=== PATIENT | female | born 1955 | race Caucasian/White ===

== ENCOUNTER → 2019-03-12 | Outpatient (CLI) | payer BC ==
--- NOTE | 2019-03-12 14:54 | Diagnostic Imaging Report ---
INDICATION: Fall two weeks ago and low back pain. TIME OF EXAM: 2:17 p.m. FINDINGS: Three views of the lumbar spine were obtained. Curvature and alignment are normal. Vertebral body heights are well maintained. No acute compression fracture is seen. Multilevel degenerative disc disease is noted with variable disc space narrowing and marginal spurring. There is multilevel facet arthropathy. IMPRESSION: Lumbar spondylosis. No acute bony abnormality is detected. Dictated by: Dictated on workstation # [id number]
--- NOTE | 2019-03-12 15:02 | Diagnostic Imaging Report ---
INDICATION: Fall with right hip pain. TIME OF EXAM: 2:19 p.m. FINDINGS: Two views of the right hip demonstrate normal femoroacetabular alignment. The joint space is well maintained. Femoral head and neck are intact. No fractures are seen. The right-sided rami are intact. IMPRESSION: No acute bony abnormality is detected. Dictated by: Dictated on workstation # [id number]
== END ==
LOC: RAD FS 14:10
PROVIDERS: ATTEND Nurse Practitioner
DX: M47.816 Spondylosis without myelopathy or radiculopathy, lumbar region (principal); M25.551 Pain in right hip; W19.XXXA Unspecified fall, initial encounter
CPT/HCPCS: 72100; 73502

== ENCOUNTER → 2019-12-05 | Outpatient (CLI) | payer BC, OTHER ==
--- NOTE | 2019-12-05 16:00 | Diagnostic Imaging Report ---
PROCEDURE: US Renal Bilateral. TECHNIQUE: Multiple real-time grayscale images were obtained over the kidneys in various projections bilaterally. INDICATION: Chronic kidney disease, stage III. Right kidney measures 9.7 x 4.5 x 5.0 cm and the left kidney measures 9.1 x 4.7 x 4.5 cm. The cortical thickness and echogenicity appears normal. No calculi are seen. There is no hydronephrosis. Bladder is unremarkable. Ureteral jets were not visualized. IMPRESSION: Unremarkable renal ultrasound. Dictated by: Dictated on workstation # [id number]
== END ==
LOC: RAD 12:00
PROVIDERS: ATTEND Internal Medicine Nephrology
DX: N18.30 Chronic kidney disease, stage 3 unspecified (principal)
CPT/HCPCS: 76770

== ENCOUNTER 2020-12-03 19:26 | Emergency (ER) | payer BC, OTHER ==
[~2020-12-03] VITALS: Ht 170.1 cm; Wt 90.8 kg
[2020-12-03] MEDS ORDERED: LACTATED RINGERS 1,000 ML IV SCH (20:00)
[2020-12-03] MEDS ORDERED: inSUlin (REGULAR) HUMAN 1 UNIT/0.01 ML (CHARGE PER UNIT) IV SCH (20:00)
[2020-12-03 20:30] LABS: BILIRUBIN,URINE NEGATIVE (NEGATIVE); COLOR,URINE YELLOW; GLUCOSE, URINE (UA) 3+ (NEGATIVE); KETONES,URINE NEGATIVE (NEGATIVE); NITRITE,URINE POSITIVE (NEGATIVE); PROTEIN,URINE NEGATIVE (NEGATIVE)
[2020-12-03 20:40] LABS: BACTERIA,URINE LARGE /HPF; CLARITY,URINE CLOUDY; LEUKOCYTE ESTERASE ,URINE 1+ (NEGATIVE); RBC,URINE 25-50 /HPF; SQUAMOUS EPITHELIAL CELL,UR 0-2 /HPF; WBC,URINE 50-100 /HPF
[2020-12-03 20:43] LABS: BASOPHILS # (AUTO) 0.1 10^3/uL (0.0-0.1); BASOPHILS % (AUTO) 1 % (0-10); EOSINOPHILS # (AUTO) 0.1 10^3/uL (0.0-0.3); EOSINOPHILS % (AUTO) 1 % (0-10); HEMATOCRIT 38 % (35-52); HEMOGLOBIN 13.1 g/dL (11.5-16.0); LYMPHOCYTES # (AUTO) 1.7 X 10^3 (1.0-4.0); LYMPHOCYTES % (AUTO) 13 % (12-44); MEAN CORPUSCULAR HEMOGLOBIN 29 pg (25-34); MEAN CORPUSCULAR HGB CONC 35 g/dL (32-36); MEAN CORPUSCULAR VOLUME 84 fL (80-99); MONOCYTES # (AUTO) 1.1 X 10^3 (0.0-1.0); MONOCYTES % (AUTO) 8 % (0-12); NEUTROPHILS # (AUTO) 10.1 X 10^3 (1.8-7.8); NEUTROPHILS % (AUTO) 77 % (42-75); PLATELET COUNT 191 10^3/uL (130-400); WHITE BLOOD COUNT 13.1 10^3/uL (4.3-11.0)
--- NOTE | 2020-12-03 20:57 | ED General ---
General Chief Complaint: General Problems/Pain Stated Complaint: CHILLS,NAUSEA Nursing Triage Note: PT IN PER POV WITH C/O CHILLS AND NAUSEA SINCE MONDAY. REPORTS VOMITED ONCE ON MONDAY. Source of Information: Patient Exam Limitations: No Limitations History of Present Illness Date Seen by Provider: Dec 03, 2020 Time Seen by Provider: 19:35 Initial Comments 65-year-old female with past medical history of diabetes coming in due to 2 days of chills, body aches, headache, and a couple episodes of nonbloody nonbilious vomiting. She says she has not taken her insulin or blood sugar for the past couple days when she is feeling sick. Denies any cough, fever that she knows of, diarrhea, rash. Has had some urinary symptoms as well. Is otherwise denying any other acute complaints. Allergies and Home Medications Allergies Coded Allergies: No Known Drug Allergies (Unverified , 12/03/20) Patient Home Medication List Home Medication List Reviewed: Yes Cefdinir (Cefdinir) 300 Mg Capsule, 300 MG PO BID Prescribed by: NOEMÍ CLARK on 12/03/202058 Ondansetron (Ondansetron Odt) 4 Mg Tab.rapdis, 4 MG PO Q6H PRN for NAUSEA/VOMITING Prescribed by: NOEMÍ CLARK on 12/03/202058 Review of Systems Review of Systems Constitutional: chills; No fever; malaise EENTM: No nose congestion, No throat pain Respiratory: No cough, No short of breath Gastrointestinal: No abdominal pain, No constipation, No diarrhea; nausea, vomiting Genitourinary: dysuria Musculoskeletal: no symptoms reported Skin: no symptoms reported Psychiatric/Neurological: No Symptoms Reported Hematologic/Lymphatic: No Symptoms Reported Immunological/Allergic: no symptoms reported All Other Systems Reviewed Negative Unless Noted: Yes Past Fhhians-Atpkcw-Sekojc Hx Patient Social History Tobacco Use?: No Use of E-Cig and/or Vaping dev: No Substance use?: No Alcohol Use?: No Pt feels they are or have been: No Immunizations Up To Date First/Initial COVID19 Vaccinat: may 2020 Second COVID19 Vaccination Lucas: june 2020 COVID19 Vaccine Supervisor Hand Workers: hilda Physical Exam Vital Signs Vital Signs - First Documented 12/03/20 19:35 Temp 37.6 Pulse 88 Resp 14 B/P (MAP) 152/71 (98) Pulse Ox 98 O2 Delivery Room Air Capillary Refill : Less Than 3 Seconds Height, Weight, BMI Height: '" Weight: lbs. oz. kg; 31.00 BMI Method: General Appearance: No Apparent Distress, WD/WN HEENT: PERRL/EOMI, Normal ENT Inspection, Pharynx Normal Neck: Full Range of Motion, Normal Inspection, Non Tender, Supple Respiratory: Chest Non Tender, Lungs Clear, Normal Breath Sounds, No Accessory Muscle Use, No Respiratory Distress Cardiovascular: Regular Rate, Rhythm, No Edema, Normal Peripheral Pulses Gastrointestinal: Normal Bowel Sounds, Non Tender, Soft; No Distended, No Guarding Back: Normal Inspection, No Vertebral Tenderness Extremity: Normal Capillary Refill, Normal Inspection, Normal Range of Motion, Non Tender, No Calf Tenderness, No Pedal Edema Neurologic/Psychiatric: Alert, Normal Mood/Affect Skin: Normal Color, Warm/Dry Lymphatic: No Adenopathy Progress/Results/Core Measures Suspected Sepsis SIRS Temperature: Pulse: 88 Respiratory Rate: 14 Laboratory Tests 12/03/20 20:15: White Blood Count 13.1H Blood Pressure 152 /71 Mean: 98 Laboratory Tests 12/03/20 20:15: Creatinine 1.64H, Platelet Count 191 Results/Orders Lab Results Laboratory Tests Test 12/03/20 19:48 12/03/20 20:08 12/03/20 20:15 Range/Units Glucometer 271 H 70-110 MG/DL Urine Color YELLOW Urine Clarity CLOUDY H Urine pH 6.0 5-9 Urine Specific Webster <=1.005 1.016-1.022 Urine Protein NEGATIVE NEGATIVE Urine Glucose (UA) 3+ H NEGATIVE Urine Ketones NEGATIVE NEGATIVE Urine Nitrite POSITIVE H NEGATIVE Urine Bilirubin NEGATIVE NEGATIVE Urine Urobilinogen 0.2 < = 1.0 MG/DL Urine Leukocyte Esterase 1+ H NEGATIVE Urine RBC (Auto) 2+ H NEGATIVE Urine RBC 25-50 H /HPF Urine WBC 50-100 H /HPF Urine Squamous Epithelial Cells 0-2 /HPF Urine Crystals NONE /LPF Urine Bacteria LARGE H /HPF Urine Casts NONE /LPF Urine Mucus NEGATIVE /LPF Urine Culture Indicated YES White Blood Count 13.1 H 4.3-11.0 10^3/uL Red Blood Count 4.50 3.80-5.11 10^6/uL Hemoglobin 13.1 11.5-16.0 g/dL Hematocrit 38 35-52 % Mean Corpuscular Volume 84 80-99 fL Mean Corpuscular Hemoglobin 29 25-34 pg Mean Corpuscular Hemoglobin Concent 35 32-36 g/dL Red Cell Distribution Width 14.0 10.0-14.5 % Platelet Count 191 130-400 10^3/uL Mean Platelet Volume 10.0 9.0-12.2 fL Immature Granulocyte % (Auto) 1 % Neutrophils (%) (Auto) 77 H 42-75 % Lymphocytes (%) (Auto) 13 12-44 % Monocytes (%) (Auto) 8 0-12 % Eosinophils (%) (Auto) 1 0-10 % Basophils (%) (Auto) 1 0-10 % Neutrophils # (Auto) 10.1 H 1.8-7.8 X 10^3 Lymphocytes # (Auto) 1.7 1.0-4.0 X 10^3 Monocytes # (Auto) 1.1 H 0.0-1.0 X 10^3 Eosinophils # (Auto) 0.1 0.0-0.3 10^3/uL Basophils # (Auto) 0.1 0.0-0.1 10^3/uL Immature Granulocyte # (Auto) 0.1 0.0-0.1 10^3/uL Sodium Level 133 L 135-145 MMOL/L Potassium Level 3.8 3.6-5.0 MMOL/L Chloride Level 91 L 98-107 MMOL/L Carbon Dioxide Level 28 21-32 MMOL/L Anion Gap 14 5-14 MMOL/L Blood Urea Nitrogen 37 H 7-18 MG/DL Creatinine 1.64 H 0.60-1.30 MG/DL Estimat Glomerular Filtration Rate 32 BUN/Creatinine Ratio 23 Glucose Level 283 H 70-105 MG/DL Calcium Level 9.5 8.5-10.1 MG/DL My Orders Orders - NOEMÍ CLARK MD Accucheck Stat ONCE (12/03/20 19:47) Basic Metabolic Panel (12/03/20 19:58) Cbc With Automated Diff (12/03/20 19:58) Ua Culture If Indicated (12/03/20 19:58) Coronavirus Sars-Cov-2 So 2018 (12/03/20 19:58) Lactated Ringers (Lr 1000 Ml Iv Solution (12/03/20 20:00) Insulin (Regular) Human (Novolin R (Per (12/03/20 20:00) Iv/Invasive Line Insertion .IV start (12/03/20 20:32) Urine Culture (12/03/20 20:08) Ceftriaxone (Rocephin) (12/03/20 21:00) Ondansetron Injection (Zofran Injectio (12/03/20 21:00) Vital Signs/I&O 12/03/20 19:35 Temp 37.6 Pulse 88 Resp 14 B/P (MAP) 152/71 (98) Pulse Ox 98 O2 Delivery Room Air Capillary Refill : Less Than 3 Seconds Blood Pressure Mean: 98 Point of Care Testing Finger Stick Blood Glucose: 278 Blood Glucose Action Taken: dr clark notified Progress Note : Progress Note 65-year-old female with above history coming in due to general body aches, chills, dysuria. ABCs were intact and vitals were stable on presentation. Physical exam reassuring with no focal abnormalities. Labs significant for elevated glucose, and urinalysis consistent with infection. Given her systemic symptoms if it is more along with pyelonephritis. Given first dose of IV ceftriaxone here. Will send home with oral cefdinir. Covid test sent given the chills and vomiting as well and will come back within the next day or so. She was given a bolus of IV fluids and insulin as well given her elevated glucose and her not taking them recently. She did states she took her long-acting insulin this morning though. Other labs were significant for a slightly elevated creatinine at 1.6 which given her longstanding poorly controlled diabetes is likely CKD versus a mild MICHELLE. Her IV fluids should help with this as well as she is tolerating p.o. fluids well. I believe she is stable for discharge. She was sent home in stable condition with strict return precautions Departure Impression Primary Impression: Pyelonephritis Additional Impression: Person under investigation for COVID-19 Disposition: HOME, SELF-CARE Condition: Stable Departure-Patient Inst. Decision time for Depature: 20:55 Referrals: ANGELA FRANCO (PCP/Family) Primary Care Physician Patient Instructions: COVID-19 Overview, Kidney Infection (DC) Add. Discharge Instructions: It appears like you have a kidney infection. We will send in antibiotic and nausea meds to your pharmacy. Your Covid test should be back within the next 24 hours. Drink plenty of fluids and be sure to check your glucose and take insulin. Elevated glucose will make your kidney infection worse. All discharge instructions reviewed with patient and/or family. Voiced understanding. Scripts Ondansetron (Ondansetron Odt) 4 Mg Tab.rapdis 4 MG PO Q6H PRN for NAUSEA/VOMITING for 5 Days, #20 TAB 0 Refills Prov: NOEMÍ CLARK MD 12/03/20 Cefdinir (Cefdinir) 300 Mg Capsule 300 MG PO BID for 7 Days, #14 CAP 0 Refills Prov: NOEMÍ CLARK MD 12/03/20 NOEMÍ CLARK MD Dec 03, 2020 20:57
[2020-12-03 20:58] LABS: POTASSIUM 3.8 MMOL/L (3.6-5.0)
[2020-12-03 20:59] LABS: CALCIUM 9.5 MG/DL (8.5-10.1); CREATININE SERUM 1.64 MG/DL (0.60-1.30)
[2020-12-03] MEDS ORDERED: CEFD300C3 PO (20:59)
[2020-12-03] MEDS ORDERED: ONDA4TAB11 PO (20:59)
[2020-12-03] MEDS ORDERED: ONDANSETRON 4 MG/2 ML (SDV) Z0FRAN IVP ONE (21:00)
[2020-12-03] MEDS ORDERED: cefTRIAXone 1,000 MG in WATER (STERILE) FOR INJECTION 10 ML IV ONE (21:00)
[2020-12-03 21:15] VITALS: BP 143/65
== END 2020-12-03 21:15 | disposition home or self-care (01) ==
LOC: EDUNIT# 19:26 → ER FS 19:28
DX: N12 Tubulo-interstitial nephritis, not specified as acute or chronic (principal); E11.9 Type 2 diabetes mellitus without complications; T38.3X6A Underdosing of insulin and oral hypoglycemic [antidiabetic] drugs, initial encounter; Z91.14 Patient's other noncompliance with medication regimen; Z20.822 Contact with and (suspected) exposure to COVID-19
CPT/HCPCS: 36415; 80048; 81000; 82947; 85025; 87077; 87088; 87186; 87635; 96374; 96375

== ENCOUNTER 2022-08-22 07:05 | Observation (INO) | payer BC, MEDICARE ==
[~2022-08-22] VITALS: Ht 167 cm; Wt 90.0 kg
[2022-08-22] VITALS (11 sets, daily range): BP systolic 112–131; BP diastolic 56–69
[~2022-08-22 07:05] MED LIST: CEFD300C3 PO; ONDA4TAB11 PO
[2022-08-22] MEDS ORDERED: PANTOPRAZOLE 40 MG (PROTONIX) VIAL IV ONE (07:30)
[2022-08-22 07:35] LABS: BASOPHILS # (AUTO) 0.1 10^3/uL (0.0-0.1); BASOPHILS % (AUTO) 1 % (0-10); EOSINOPHILS # (AUTO) 0.7 10^3/uL (0.0-0.3); EOSINOPHILS % (AUTO) 7 % (0-10); LYMPHOCYTES # (AUTO) 2.6 10^3/uL (1.0-4.0); LYMPHOCYTES % (AUTO) 25 % (12-44); MEAN CORPUSCULAR HEMOGLOBIN 26 pg (25-34); MEAN CORPUSCULAR HGB CONC 30 g/dL (32-36); MEAN CORPUSCULAR VOLUME 86 fL (80-99); MEAN PLATELET VOLUME 10.6 fL (9.0-12.2); MONOCYTES # (AUTO) 0.8 10^3/uL (0.0-1.0); MONOCYTES % (AUTO) 8 % (0-12); NEUTROPHILS # (AUTO) 5.9 10^3/uL (1.8-7.8); NEUTROPHILS % (AUTO) 59 % (42-75); PLATELET COUNT 265 10^3/uL (130-400); WHITE BLOOD COUNT 10.1 10^3/uL (4.3-11.0)
[2022-08-22 07:38] LABS: HEMATOCRIT 18 % (35-52); HEMOGLOBIN 5.6 g/dL (11.5-16.0)
--- NOTE | 2022-08-22 07:41 | Diagnostic Imaging Report ---
INDICATION: Chest pain AP upright portable view of the chest is obtained. COMPARISON: No previous study is available for comparison at this time. FINDINGS: Heart size and pulmonary vasculature are within normal limits, and the lungs are clear, bilaterally. IMPRESSION: Unremarkable chest. Dictated by: Dictated on workstation # [id number]
--- NOTE | 2022-08-22 08:01 | ED General ---
General Chief Complaint: General Problems/Pain Stated Complaint: CHEST PAIN Nursing Triage Note: Patient has presented to ER with with several complaints. She complains of shortness of breath with exertion for the last 2 weeks. She reports that when she is short of breath she has some chest pain. After resting her pain will go away and with rest her shortness of breath will get better. Patient reports that when she has the the chest pain she also has upper abd pain. She states that 2 1/2 week ago she had a colonoscopy and had polyps removed. Since that time she has had the symptoms. Source of Information: Patient Exam Limitations: No Limitations History of Present Illness Date Seen by Provider: Aug 22, 2022 Time Seen by Provider: 07:08 Initial Comments 66-year-old female patient with history of hypertension and type 2 diabetes presented POV with complaining of shortness of breath and chest pain and abdominal pain. Patient stated she had colonoscopy on August 05 with removal of polyp and since then has had 1 episode of black tarry stool a day with gradual onset of episodes of exertional shortness of breath and pressure chest pain during episode of shortness of breath with radiation to her back and abdomen. Patient rated her pain 5/10 and states the pain resolved about 15 minutes with rest. Patient complained of generalized weakness and palpitation and dizziness with activity. Patient denies history of chest pain, nausea and vomiting, GI bleeding, fever and chills, cough and congestion. Patient had a colonoscopy 3 months ago and because of taking aspirin did not have polypectomy. Patient stopped taking aspirin 1 week before her second colonoscopy on August 05 and resume taking aspirin the day after her procedure. Patient did not take baby aspirin today. Allergies and Home Medications Allergies Coded Allergies: No Known Drug Allergies (Unverified , 12/03/20) Patient Home Medication List Home Medication List Reviewed: Yes Cefdinir (Cefdinir) 300 Mg Capsule, 300 MG PO BID Prescribed by: NOEMÍ KAMARA on 12/03/202058 Ondansetron (Ondansetron Odt) 4 Mg Tab.rapdis, 4 MG PO Q6H PRN for NAUSEA/VOMITING Prescribed by: NOEMÍ KAMARA on 12/03/202058 Review of Systems Review of Systems Constitutional: no symptoms reported EENTM: no symptoms reported Respiratory: see HPI Cardiovascular: see HPI Gastrointestinal: see HPI Genitourinary: no symptoms reported Musculoskeletal: no symptoms reported Skin: no symptoms reported Psychiatric/Neurological: No Symptoms Reported Hematologic/Lymphatic: See HPI Immunological/Allergic: no symptoms reported All Other Systems Reviewed Negative Unless Noted: Yes Past Jszvxis-Wmwber-Qqghvx Hx Patient Social History Use of E-Cig and/or Vaping dev: No Substance use?: No Alcohol Use?: No Pt feels they are or have been: Unable to obtain Immunizations Up To Date First/Initial COVID19 Vaccinat: may 2020 Second COVID19 Vaccination Lucas: june 2020 Physical Exam Vital Signs Vital Signs - First Documented 08/22/22 07:30 Temp 35.9 Pulse 19 Resp 19 B/P (MAP) 112/88 (96) Pulse Ox 100 O2 Delivery Room Air Capillary Refill : Height, Weight, BMI Height: '" Weight: lbs. oz. kg; 32.00 BMI Method: General Appearance: No Apparent Distress, WD/WN Eyes: Bilateral Eye Normal Inspection, Bilateral Eye PERRL, Bilateral Eye EOMI HEENT: PERRL/EOMI, Pharynx Normal, Pale Conjunctivae (L), Pale Conjunctivae (R) Neck: Full Range of Motion, Normal Inspection, Non Tender, Supple, Carotid Bruit Respiratory: Chest Non Tender, Lungs Clear, Normal Breath Sounds, No Accessory Muscle Use, No Respiratory Distress Cardiovascular: Regular Rate, Rhythm, No Edema, No Gallop, No JVD, No Murmur, Normal Peripheral Pulses Gastrointestinal: Normal Bowel Sounds, No Organomegaly, No Pulsatile Mass, Non Tender, Soft Rectal: Normal Rectal Tone, Black Stool, Heme Positive Stool Back: Normal Inspection, No CVA Tenderness, No Vertebral Tenderness Extremity: Normal Capillary Refill, Normal Inspection, Normal Range of Motion, Non Tender, No Calf Tenderness, No Pedal Edema Neurologic/Psychiatric: Alert, Oriented x3, No Motor/Sensory Deficits, Normal Mood/Affect Skin: Normal Color, Warm/Dry Lymphatic: No Adenopathy Progress/Results/Core Measures Suspected Sepsis SIRS Temperature: Pulse: 19 Respiratory Rate: 19 Laboratory Tests 08/22/22 07:09: White Blood Count 10.1 Blood Pressure 112 /88 Mean: 96 Laboratory Tests 08/22/22 07:09: Creatinine 1.56H, INR Comment 0.9, Platelet Count 265, Total Bilirubin 0.5 Results/Orders Lab Results Laboratory Tests Test 08/22/22 07:09 08/22/22 07:37 Range/Units White Blood Count 10.1 4.3-11.0 10^3/uL Red Blood Count 2.15 L 3.80-5.11 10^6/uL Hemoglobin 5.6 *L 11.5-16.0 g/dL Hematocrit 18 *L 35-52 % Mean Corpuscular Volume 86 80-99 fL Mean Corpuscular Hemoglobin 26 25-34 pg Mean Corpuscular Hemoglobin Concent 30 L 32-36 g/dL Red Cell Distribution Width 17.8 H 10.0-14.5 % Platelet Count 265 130-400 10^3/uL Mean Platelet Volume 10.6 9.0-12.2 fL Immature Granulocyte % (Auto) 1 % Neutrophils (%) (Auto) 59 42-75 % Lymphocytes (%) (Auto) 25 12-44 % Monocytes (%) (Auto) 8 0-12 % Eosinophils (%) (Auto) 7 0-10 % Basophils (%) (Auto) 1 0-10 % Neutrophils # (Auto) 5.9 1.8-7.8 10^3/uL Lymphocytes # (Auto) 2.6 1.0-4.0 10^3/uL Monocytes # (Auto) 0.8 0.0-1.0 10^3/uL Eosinophils # (Auto) 0.7 H 0.0-0.3 10^3/uL Basophils # (Auto) 0.1 0.0-0.1 10^3/uL Immature Granulocyte # (Auto) 0.1 0.0-0.1 10^3/uL Prothrombin Time 13.0 12.2-14.7 SEC INR Comment 0.9 0.8-1.4 Activated Partial Thromboplast Time 26 24-35 SEC D-Dimer 0.55 H 0.00-0.49 UG/ML Sodium Level 138 135-145 MMOL/L Potassium Level 4.6 3.6-5.0 MMOL/L Chloride Level 102 98-107 MMOL/L Carbon Dioxide Level 25 21-32 MMOL/L Anion Gap 11 5-14 MMOL/L Blood Urea Nitrogen 32 H 7-18 MG/DL Creatinine 1.56 H 0.60-1.30 MG/DL Estimat Glomerular Filtration Rate 37 BUN/Creatinine Ratio 21 Glucose Level 116 H 70-105 MG/DL Calcium Level 9.1 8.5-10.1 MG/DL Corrected Calcium 9.4 8.5-10.1 MG/DL Magnesium Level 2.3 1.6-2.4 MG/DL Total Bilirubin 0.5 0.1-1.0 MG/DL Aspartate Amino Transf (AST/SGOT) 30 5-34 U/L Alanine Aminotransferase (ALT/SGPT) 6 0-55 U/L Alkaline Phosphatase 53 40-136 U/L Myoglobin 63.3 H <58.0 NG/ML Troponin I < 0.30 <0.30 NG/ML Pro-B-Type Natriuretic Peptide 745.8 H <125.0 PG/ML Total Protein 6.1 L 6.4-8.2 GM/DL Albumin 3.6 3.2-4.5 GM/DL Lipase 60 8-78 U/L Stool Occult Blood Immunoassay POSITIVE H NEGATIVE My Orders Orders - TOM WHITFIELD MD Cbc With Automated Diff (08/22/22 07:21) Magnesium (08/22/22 07:21) Chest 1 View Ap/Pa Only (08/22/22 07:21) Ekg Tracing (08/22/22 07:21) Comprehensive Metabolic Panel (08/22/22 07:21) Myoglobin Serum (08/22/22 07:21) Protime With Inr (08/22/22 07:21) Partial Thromboplastin Time (08/22/22 07:21) O2 (08/22/22 07:21) Monitor-Rhythm Ecg Trace Only (08/22/22 07:21) Ed Iv/Invasive Line Start (08/22/22 07:21) Lipase (08/22/22 07:21) Troponin I Fs (08/22/22 07:21) Probnp Fs (08/22/22 07:21) Fibrin Degradation Products (08/22/22 07:21) Occult Blood Stool (08/22/22 07:21) Pantoprazole Injection (Protonix Injecti (08/22/22 07:30) Medications Given in ED Current Medications Medications Dose Ordered Sig/Triston Route Start Time Stop Time Status Last Admin Dose Admin Pantoprazole 40 mg ONCE ONCE IV 08/22/22 07:30 08/22/22 07:31 DC 08/22/22 07:36 40 MG Vital Signs/I&O 08/22/22 08/22/22 07:30 08:28 Temp 35.9 Pulse 19 71 Resp 19 16 B/P (MAP) 112/88 (96) 131/55 Pulse Ox 100 97 O2 Delivery Room Air Room Air Capillary Refill : Blood Pressure Mean: 96 Progress Note : Time: 08:20 Progress Note 66-year-old female patient with CARMITA score of 3 with complaining of exertional episodes of shortness of breath and chest pain and abdominal pain after polypectomy via colonoscopy on August 05 associated with episode of black stool. Patient was pale at arrival to ER but had a stable vital signs with O2 sat of 100% at room air and blood pressure of 120s and heart rate of 70s without complaining of shortness of breath or chest pain with rest. Patient had melena with positive guaiac test. Lab was ordered and reviewed by me. CBC showed hemoglobin of 5.6 and hematocrit of 18. CMP showed elevation of BUN and creatin ine at 32 and 1.56 that could be related to recent GI bleeding or chronic diabetes mellitus. PT/INR, PTT and D-dimer was unremarkable. No previous lab was available. Troponin was negative. Liver function test was normal. Blood sugar was 116. BNP was elevated at more than 700. Chest x-ray was unremarkable. EKG was normal. Patient treated with Protonix 40 mg IV in ER. CT abdomen pelvis was not ordered because of needs of CTA abd/pel for finding the source of bleeding. Patient did not have IV fluid because of stable vital sign and chance of d more decrease of hemoglobin and also having CHF. On-call hospitalist Dr. Lynn was consulted at 0811 and accepted admission. Patient and her informed about test result and plan of care and need for nj thomas and all questions was addressed. ECG Initial ECG Impression Date: Aug 22, 2022 Initial ECG Impression Time: 07:21 Initial ECG Rate: 70 Initial ECG Rhythm: Normal Sinus Initial ECG Intervals: Normal Initial ECG Impression: Normal Initial ECG Comparisson: No Previous ECG Available Comment EKG interpreted by me. EKG at 0 721 showed normal sinus rhythm at rate of 70, normal RI interval of 131 and QT of 412 and QTc of 433, QRS duration of 90, no acute ST and T wave elevation. Diagnostic Imaging Diagonstic Imaging: Xray Plain Films/CT/US/NM/MRI: chest Comments 1 view chest x-ray interpreted by radiologist and reviewed by me and showed: NAME: CUBA HERNANDEZ [facility] REC#: [id number] PT STATUS: REG ER : 1955 PHYSICIAN: TOM WHITFIELD MD ADMIT DATE: 08/22/22/ER FS Draft Date of Exam:08/22/22 CHEST 1 VIEW AP/PA ONLY INDICATION: Chest pain AP upright portable view of the chest is obtained. COMPARISON: No previous study is available for comparison at this time. FINDINGS: Heart size and pulmonary vasculature are within normal limits, and the lungs are clear, bilaterally. IMPRESSION: Unremarkable chest. Dictated on workstation # [id number] Dict: 08/22/22 0736 Trans: 08/22/22 0740 [facility] [id number] Interpreted by: VICTOR HUGO RAMIREZ MD Electronically signed by: Critical Care Note Critical Care Total Time (minutes) 45 minutes Departure Communication (Admissions) Time/Spoke to Admitting Phy: 08:11 Dr. Bennett on-call hospitalist accepted admission at 0811 to [facility] Impression Primary Impression: Severe anemia Additional Impressions: GI bleeding Renal insufficiency CHF (congestive heart failure) Chest pain in adult Shortness of breath Abdominal pain Disposition: ADMITTED INPATIENT Condition: Improved Admissions Decision to Admit Reason: Admit from ER (General) Decision to Admit/Date: Aug 22, 2022 Time/Decision to Admit Time: 08:12 Transfer Method of Transfer: EMS Departure-Patient Inst. Referrals: ANGELA FRANCO (PCP/Family) Primary Care Physician TOM WHITFIELD MD Aug 22, 2022 08:01
[2022-08-22 08:03] LABS: ALANINE AMINOTRANSFERASE 6 U/L (0-55); ALKALINE PHOSPHATASE 53 U/L (40-136); BILIRUBIN,TOTAL 0.5 MG/DL (0.1-1.0); BUN/CREATININE RATIO 21; CALCIUM 9.1 MG/DL (8.5-10.1); CARBON DIOXIDE 25 MMOL/L (21-32); CHLORIDE 102 MMOL/L (98-107); CREATININE SERUM 1.56 MG/DL (0.60-1.30); GFR ESTIMATED 37; GLUCOSE 116 MG/DL (70-105); MAGNESIUM 2.3 MG/DL (1.6-2.4); POTASSIUM 4.6 MMOL/L (3.6-5.0); SODIUM 138 MMOL/L (135-145)
[2022-08-22 08:04] LABS: ALBUMIN 3.6 GM/DL (3.2-4.5); LIPASE 60 U/L (8-78); TOTAL PROTEIN 6.1 GM/DL (6.4-8.2)
[2022-08-22 08:05] LABS: FIBRIN DEGRADATION PRODUCTS 0.55 UG/ML (0.00-0.49); INR 0.9 (0.8-1.4)
--- NOTE | 2022-08-22 11:25 | History & Physical ---
HPI History of Present Illness: About 3 months ago had screening colonoscopy, didn't know she needed to hold aspirin, so she had to wait to reschedule for polyp removal. She started Rybelsus about a week or two before her repeat colonoscopy so thought it may be partly reaction to that. She had her repeat colonoscopy the first Monday in August and she believes she had 2 polyps removed. She just was able to see her results on her online chart and that it said "precancerous". Since then weak and achy and when she moves very much at all gets short of breath and chest and stomach and upper legs and across back hurt. She has had black stools. Denies nausea, vomiting. She has no history of ulcers and has not had an EGD in the past. Source: patient Date seen by provider: Aug 22, 2022 Time Seen by Provider: 11:29 Attending Physician Laina Santiago PCP Admitting Physician: Attending Physician: Consult Date of Admission Home Medications Home Medications Reviewed patient Home Medication Reconciliation performed by pharmacy medication reconciliations central sterile technician and/or nursing. Patients Allergies have been reviewed. Allergies Coded Allergies: No Known Drug Allergies (Unverified , 12/03/20) PDC-Hmwegn-Ptuixp Hx Patient Social History Smoking Status: Former Smoker (quit Mar 1985) Alcohol Use?: No Immunizations Up To Date First/Initial COVID19 Vaccinat: may 2020 Second COVID19 Vaccination Lucas: june 2020 Past Medical History PMHx: Diabetes HTN CKD SurgHx: Cholecystectomy C section Hysterectomy Family Medical History Significant Family History: Heart Disease (father had open heart surgery, younger brother with CAD around age 56 or 57) Review of Systems ([facility]) Constitutional: No fever EENTM: No nose congestion, No throat pain Respiratory: No cough; dyspnea on exertion, short of breath Cardiovascular: chest pain, edema (in hands) Gastrointestinal: abdominal pain (when short of breath), constipation; No diarrhea, No nausea, No vomiting Genitourinary: No dysuria Musculoskeletal: see HPI Skin: No rash Psychiatric/Neurological: No Symptoms Reported Reviewed Test Results Reviewed Test Results Lab Laboratory Tests Test 08/22/22 07:09 08/22/22 07:37 Range/Units White Blood Count 10.1 4.3-11.0 10^3/uL Red Blood Count 2.15 L 3.80-5.11 10^6/uL Hemoglobin 5.6 *L 11.5-16.0 g/dL Hematocrit 18 *L 35-52 % Mean Corpuscular Volume 86 80-99 fL Mean Corpuscular Hemoglobin 26 25-34 pg Mean Corpuscular Hemoglobin Concent 30 L 32-36 g/dL Red Cell Distribution Width 17.8 H 10.0-14.5 % Platelet Count 265 130-400 10^3/uL Mean Platelet Volume 10.6 9.0-12.2 fL Immature Granulocyte % (Auto) 1 % Neutrophils (%) (Auto) 59 42-75 % Lymphocytes (%) (Auto) 25 12-44 % Monocytes (%) (Auto) 8 0-12 % Eosinophils (%) (Auto) 7 0-10 % Basophils (%) (Auto) 1 0-10 % Neutrophils # (Auto) 5.9 1.8-7.8 10^3/uL Lymphocytes # (Auto) 2.6 1.0-4.0 10^3/uL Monocytes # (Auto) 0.8 0.0-1.0 10^3/uL Eosinophils # (Auto) 0.7 H 0.0-0.3 10^3/uL Basophils # (Auto) 0.1 0.0-0.1 10^3/uL Immature Granulocyte # (Auto) 0.1 0.0-0.1 10^3/uL Prothrombin Time 13.0 12.2-14.7 SEC INR Comment 0.9 0.8-1.4 Activated Partial Thromboplast Time 26 24-35 SEC D-Dimer 0.55 H 0.00-0.49 UG/ML Sodium Level 138 135-145 MMOL/L Potassium Level 4.6 3.6-5.0 MMOL/L Chloride Level 102 98-107 MMOL/L Carbon Dioxide Level 25 21-32 MMOL/L Anion Gap 11 5-14 MMOL/L Blood Urea Nitrogen 32 H 7-18 MG/DL Creatinine 1.56 H 0.60-1.30 MG/DL Estimat Glomerular Filtration Rate 37 BUN/Creatinine Ratio 21 Glucose Level 116 H 70-105 MG/DL Calcium Level 9.1 8.5-10.1 MG/DL Corrected Calcium 9.4 8.5-10.1 MG/DL Magnesium Level 2.3 1.6-2.4 MG/DL Total Bilirubin 0.5 0.1-1.0 MG/DL Aspartate Amino Transf (AST/SGOT) 30 5-34 U/L Alanine Aminotransferase (ALT/SGPT) 6 0-55 U/L Alkaline Phosphatase 53 40-136 U/L Myoglobin 63.3 H <58.0 NG/ML Troponin I < 0.30 <0.30 NG/ML Pro-B-Type Natriuretic Peptide 745.8 H <125.0 PG/ML Total Protein 6.1 L 6.4-8.2 GM/DL Albumin 3.6 3.2-4.5 GM/DL Lipase 60 8-78 U/L Stool Occult Blood Immunoassay POSITIVE H NEGATIVE Physical Exam-([facility]C) Physical Exam Vital Signs VS - Last 72 Hours, by Label 08/22/22 08/22/22 08/22/22 08/22/22 07:30 08:28 12:06 12:29 Temp 35.9 36.4 Pulse 19 71 74 75 Resp 19 16 20 B/P (MAP) 112/88 (96) 131/55 130/63 (85) Pulse Ox 100 97 96 O2 Delivery Room Air Room Air Room Air 08/22/22 08/22/22 08/22/22 12:36 13:18 13:40 Temp 37.2 37.2 Pulse 76 74 Resp 18 18 B/P (MAP) 116/57 114/58 Pulse Ox 97 97 96 O2 Delivery Room Air Room Air Capillary Refill : General Appearance: WD/WN, no apparent distress Respiratory: lungs clear, normal breath sounds Cardiovascular: regular rate, rhythm, no murmur Gastrointestinal: normal bowel sounds, non tender, soft Extremities: no pedal edema Neurologic/Psychiatric: alert, normal mood/affect Skin: pallor Assessment/Plan Assessment/Plan Admission Status: Observation (1) Acute blood loss anemia Status: Acute Assessment & Plan: Suspect secondary to recent biopsies, will transfuse and follow hemoglobin closely. (2) Chest pain in adult Status: Acute Assessment & Plan: Suspect secondary to severe anemia, troponin normal, EKG unremarkable. (3) Hypertension Status: Chronic Assessment & Plan: Resume home losartan, hold hydrochlorothiazide and propranolol for now and monitor BP closely. Qualifiers: Qualified Codes: I10 - Essential (primary) hypertension (4) CKD (chronic kidney disease) Status: Chronic (5) DVT prophylaxis Status: Acute Assessment & Plan: No pharmacologic due to suspected GI bleeding SULAIMAN SRINIVASAN MD Aug 22, 2022 11:25
[2022-08-22] MEDS ORDERED: diphenhydrAMINE 50 MG/ML INJ (BENADRYL) IVP PRN (11:30)
[2022-08-22] MEDS ORDERED: PATIENT MAY USE OWN MEDS, ALL PO SCH (11:30)
[2022-08-22] MEDS ORDERED: ACETAMINOPHEN 325 MG TABLET PO PRN (11:30)
[2022-08-22] MEDS ORDERED: NS IV 500 ML 500 ML IV SCH ×2 (11:30→23:00)
[2022-08-22] MEDS ORDERED: HYDR25TA4 PO (11:42)
[2022-08-22] MEDS ORDERED: SEMA3TAB4 PO (11:42)
[2022-08-22] MEDS ORDERED: PROP20TA5 PO (11:42)
[2022-08-22] MEDS ORDERED: LOSA100T58 PO (11:42)
[2022-08-22] MEDS ORDERED: DAPA1TAB5 PO (11:42)
[2022-08-22] MEDS ORDERED: ASPI-479 PO (11:42)
[2022-08-22] MEDS ORDERED: ROSU20TA32 PO (11:42)
[2022-08-22] MEDS ORDERED: INSU300I3 SQ (11:42)
[2022-08-22] MEDS ORDERED: GABA300C PO (11:42)
[2022-08-22] MEDS ORDERED: INSU100V42 SQ (11:42)
[2022-08-22] MEDS: GABAPENTIN 300 MG (NEURONTIN) CAP PO SCH ×2 (13:26→20:04)
[2022-08-22] MEDS ORDERED: CALC-823 PO (15:18)
[2022-08-22] MEDS ORDERED: BACI1CAP6 PO (15:18)
[2022-08-22] MEDS ORDERED: IBUP-2473 PO (15:21)
[2022-08-22] MEDS ORDERED: inSUlin ASPART (NovoLOG) 1 UNIT/0.01 ML (CHARGE PER UNIT) SC SCH (16:00)
[2022-08-22 17:56] LABS: MEAN CORPUSCULAR HEMOGLOBIN 26 pg (25-34); MEAN CORPUSCULAR HGB CONC 31 g/dL (32-36); MEAN CORPUSCULAR VOLUME 84 fL (80-99); PLATELET COUNT 209 10^3/uL (130-400); WHITE BLOOD COUNT 8.5 10^3/uL (4.3-11.0)
[2022-08-22 18:02] LABS: HEMATOCRIT 19 % (35-52)
[2022-08-22] MEDS ORDERED: NS IV 500 ML 500 ML ONE (18:19)
[2022-08-22] MEDS: inSUlin ASPART (NovoLOG) 1 UNIT/0.01 ML (CHARGE PER UNIT) SC SCH (18:34)
[2022-08-22] MEDS: ROSUVASTATIN 20 MG (CRESTOR) TABLET PO SCH (20:04)
[2022-08-22 22:58] LABS: HEMOGLOBIN 6.3 g/dL (11.5-16.0)
[2022-08-23] VITALS (10 sets, daily range): BP systolic 107–157; BP diastolic 56–76
[2022-08-23] MEDS: inSUlin ASPART (NovoLOG) 1 UNIT/0.01 ML (CHARGE PER UNIT) SC SCH ×5 (00:29→20:48)
[2022-08-23 03:41] LABS: HEMATOCRIT 22 % (35-52); HEMOGLOBIN 7.3 g/dL (11.5-16.0); MEAN CORPUSCULAR HEMOGLOBIN 27 pg (25-34); MEAN CORPUSCULAR HGB CONC 33 g/dL (32-36); MEAN CORPUSCULAR VOLUME 82 fL (80-99); MEAN PLATELET VOLUME 10.1 fL (9.0-12.2); PLATELET COUNT 177 10^3/uL (130-400); WHITE BLOOD COUNT 6.7 10^3/uL (4.3-11.0)
[2022-08-23] MEDS: GABAPENTIN 300 MG (NEURONTIN) CAP PO SCH ×4 (08:19→20:48)
[2022-08-23] MEDS: LOSARTAN 100 MG (COZAAR) TABLET PO SCH (08:19)
--- NOTE | 2022-08-23 10:02 | Progress Note - Hospitalist ---
Subjective HPI/CC On Admission Date Seen by Provider: Aug 23, 2022 Time Seen by Provider: 10:00 Subjective/Events-last exam Patient doing a lot better Hemoglobin is 7.3 after [address] Henry will see the patient Vitals remained stable Review of Systems General: Fatigue, Malaise Objective Exam Vital Signs Vital Signs Date Time Temp Pulse Resp B/P (MAP) Pulse Ox O2 Delivery O2 Flow Rate FiO2 08/23/22 19:55 37.1 71 18 157/74 (101) 98 Room Air Capillary Refill : General Appearance: No Apparent Distress, WD/WN, Chronically ill Respiratory: Lungs Clear, Normal Breath Sounds Cardiovascular: Regular Rate, Rhythm Neurologic/Psychiatric: Alert, Oriented x3, No Motor/Sensory Deficits, Normal Mood/Affect Results/Procedures Lab Laboratory Tests 08/22/22 22:37 08/23/22 03:25 Patient resulted labs reviewed. Assessment/Plan Assessment and Plan Assess & Plan/Chief Complaint Assessment: Severe symptomatic anemia Hypertension Plan: EGD today Check iron and B12 CAT CERDA DO Aug 23, 2022 10:02
[2022-08-23] MEDS: PANTOPRAZOLE 40 MG (PROTONIX) VIAL IV SCH (10:49)
[2022-08-23] MEDS ORDERED: HURRICAINE EXT TUBE (BENZOCAINE) ONE (13:03)
[2022-08-23] MEDS ORDERED: LACTATED RINGERS 1,000 ML IV ONE (13:04)
[2022-08-23] MEDS ORDERED: LACTATED RINGERS 1,000 ML IV STA (13:10)
[2022-08-23] MEDS ORDERED: HURRICAINE EXT TUBE (BENZOCAINE) XX PRN (13:15)
--- NOTE | 2022-08-23 13:22 | Consultation - Surgery ---
History of Present Illness History of Present Illness Patient Consulted On(artemio/time) 08/23/22 13:16 Date Seen by Provider: Aug 23, 2022 Time Seen by Provider: 13:16 History of Present Illness Consult requested by Dr. Macias for anemia Patient is a 66 year old female. She had colonoscopy and polypectomy in August 05 at outside facility. She reports since then was having dark stools. She has been having gnawing epigastric pain without radiation. Rated at 4/10 constant. Was feeling weak and not well so went to ed for further evaluation. She had hgb 5.6 and was given 3 units prbc and now 7.3. Never had egd. Allergies and Home Medications Allergies Coded Allergies: No Known Drug Allergies (Unverified , 12/03/20) Patient Home Medication List Home Medication List Reviewed: Yes Aspirin (Adult Low Dose Aspirin EC) 81 Mg Tablet., 81 MG PO DAILY, (Reported) Entered as Reported by: SULAIMAN SRINIVASAN on 08/22/22 114 Last Action: Reviewed Bacillus Coagulans (Probiotic) 10 Billion Cell Capsule., 1 EACH PO 1200, (Reported) Entered as Reported by: JOE LEACH on 08/22/22 1518 Last Action: Reviewed Calcium Carbonate (Calcium) 500 Mg Calcium (1250 Mg) Tablet, 500 MG PO 1200, (Reported) Entered as Reported by: JOE LEACH on 08/22/22 1518 Last Action: Reviewed Dapagliflozin/Metformin HCl (Xigduo Xr 10 mg-1,000 mg Tab) 10 Mg-1,000 Mg Tab.bp.24h, 1 TAB PO 1200, (Reported) Entered as Reported by: SULAIMAN SRINIVASAN on 08/22/22 114 Last Action: Reviewed Gabapentin (Neurontin) 300 Mg Capsule, 300 MG PO TID, (Reported) Entered as Reported by: SULAIMAN SRINIVASAN on 08/22/22 114 Last Action: Reviewed Hydrochlorothiazide (Hydrochlorothiazide) 25 Mg Tablet, 25 MG PO 1200, (Reported) Entered as Reported by: SULAIMAN SRINIVASAN on 08/22/22 114 Last Action: Reviewed Ibuprofen (Ibuprofen) 200 Mg Tablet, 800 MG PO Q8H PRN for PAIN, (Reported) Entered as Reported by: JOE LEACH on 08/22/22 1521 Last Action: Reviewed Insulin Aspart (Insulin Aspart) 100 Unit/Ml Vial, 60 UNIT SQ PC, (Reported) Entered as Reported by: SULAIMAN SRINIVASAN on 08/22/221141 Last Action: Reviewed Insulin Glargine,Hum.rec.anlog (Tousindi Nunez Solostar) 300 Unit/Ml (3 Ml) Insuln.pen, 82 UNITS SQ HS, (Reported) Entered as Reported by: SULAIMAN SRINIVASAN on 08/22/221141 Last Action: Reviewed Losartan Potassium (Losartan Potassium) 100 Mg Tablet, 100 MG PO 1200, (Reported) Entered as Reported by: SULAIMAN SRINIVASAN on 08/22/221141 Last Action: Reviewed Propranolol HCl (Propranolol HCl) 20 Mg Tablet, 20 MG PO TID, (Reported) Entered as Reported by: SULAIMAN SRINIVASAN on 08/22/221141 Last Action: Reviewed Rosuvastatin Calcium (Rosuvastatin Calcium) 20 Mg Tablet, 20 MG PO 1200, (Reported) Entered as Reported by: SULAIMAN SRINIVASAN on 08/22/221141 Last Action: Reviewed Semaglutide (Rybelsus) 3 Mg Tablet, 3 MG PO DAILY, (Reported) Entered as Reported by: SULAIMAN SRINIVASAN on 08/22/221141 Last Action: Reviewed Discontinued Medications Cefdinir (Cefdinir) 300 Mg Capsule, 300 MG PO BID Prescribed by: NOEMÍ KAMARA on 12/03/202058 Last Action: Discontinued Ondansetron (Ondansetron Odt) 4 Mg Tab.rapdis, 4 MG PO Q6H PRN for N AUSEA/VOMITING Prescribed by: NOEMÍ KAMARA on 12/03/202058 Last Action: Discontinued Past Ykhwjrg-Wrlwmr-Jjrpvm Hx Patient Social History Smoking Status: Former Smoker Alcohol Use?: No Surgeries History of Surgeries: Yes Surgeries: Section, Gallbladder, Hysterectomy Respiratory History of Respiratory Disorde: No Cardiovascular History of Cardiac Disorders: No Neurological History of Neurological Disord: No Reproductive System : No Genitourinary History of Genitourinary Disor: No Gastrointestinal History of Gastrointestinal Di: Yes Gastrointestinal Disorders: Polyps Musculoskeletal History of Musculoskeletal Dis: No Endocrine History of Endocrine Disorders: Yes Endocrine Disorders: Diabetes, Non-Insulin dep HEENT History of HEENT Disorders: No Cancer History of Cancer: No Integumentary History of Skin or Integumenta: No Reviewed Nursing Assessment Reviewed/Agree w Nursing PMH: Yes Family Medical History Significant Family History: Heart Disease (father had open heart surgery, younger brother with CAD around age 56 or 57) Review of Systems-General Constitutional: No fever; weakness EENTM: No blurred vision Respiratory: No cough, No dyspnea on exertion Cardiovascular: No chest pain, No palpitations Gastrointestinal: abdominal pain, melena; No nausea, No vomiting; other (dark stools) Genitourinary: No decreased output, No discharge Musculoskeletal: No back pain, No joint pain Skin: No change in color, No change in hair/nails Psychiatric/Neurological: Denies Anxiety, Denies Depressed, Denies Emotional Problems All Other Systems Reviewed Negative Unless Noted: Yes (Negative excepted noted.) Physical Exam-General Problems Physical Exam Vital Signs Vital Signs - First Documented 08/22/22 07:30 Temp 35.9 Pulse 19 B/P (MAP) 112/88 (96) Pulse Ox 100 O2 Delivery Room Air Capillary Refill : General Appearance: WD/WN, no apparent distress HEENT: PERRL/EOMI, normal ENT inspection Neck: non-tender, supple Respiratory: chest non-tender, no respiratory distress, no accessory muscle use Cardiovascular: regular rate, rhythm, no JVD Gastrointestinal: no organomegaly, tenderness (epigastric) Rectal: deferred Back: no CVA tenderness, no vertebral tenderness Extremities: non-tender, normal inspection, no pedal edema Neurologic/Psychiatric: alert, oriented x 3 Skin: normal color, warm/dry Lymphatic: no adenopathy Data Review Labs Laboratory Tests 08/22/22 17:45: White Blood Count 8.5, Red Blood Count 2.28L, Hemoglobin 6.0*L, Hematocrit 19*L, Mean Corpuscular Volume 84, Mean Corpuscular Hemoglobin 26, Mean Corpuscular Hemoglobin Concent 31L, Red Cell Distribution Width 18.2H, Platelet Count 209, Mean Platelet Volume 10.0 08/22/22 18:14: Glucometer 90 08/22/22 22:37: Hemoglobin 6.3*L, Hematocrit 20*L 08/22/22 23:33: Glucometer 71 08/23/22 01:35: Glucometer 99 08/23/22 03:25: White Blood Count 6.7, Red Blood Count 2.72L, Hemoglobin 7.3L, Hematocrit 22L, Mean Corpuscular Volume 82, Mean Corpuscular Hemoglobin 27, Mean Corpuscular Hemoglobin Concent 33, Red Cell Distribution Width 17.2H, Platelet Count 177, Mean Platelet Volume 10.1 08/23/22 05:05: Glucometer 81 08/23/22 11:46: Glucometer 97 Assessment/Plan Assessment/Plan Assessment/Plan anemia gi bleed feel likely upper but with recent polypectomies, could be lower melena dm discussed risks and benefits of EGD for further evaluation. She understands and wishes to proceed. If no source found on upper, would consider colonoscopy. follow hgb transfuse as needed. Protonix NPO currently. CHRISTINA BUTLER DO Aug 23, 2022 13:22
[2022-08-23] MEDS ORDERED: proPOfol 200 MG/20 ML (DIPRIVAN) VIAL IV ONE (13:34)
--- NOTE | 2022-08-23 14:05 | Anesthesia-General Post-Op ---
MAC Patient Condition Mental Status/LOC: Same as Preop Cardiovascular: Satisfactory Nausea/Vomiting: Absent Respiratory: Satisfactory Pain: Controlled Complications: Absent Post Op Complications Complications None Follow Up Care/Instructions Patient Instructions None needed. Anesthesiology Discharge Order Discharge Order Patient is doing well, no complaints, stable vital signs, no apparent adverse anesthesia problems. No complications reported per nursing. GWENDOLYN MONTENEGRO CRNA Aug 23, 2022 14:05
--- NOTE | 2022-08-23 15:27 | Progress Note-Post Operative ---
Post-Operative Progess Note Surgeon (s)/Tire Buffer (s) Surgeon CHRISTINA BUTLER DO Tire Buffer: na Pre-Operative Diagnosis anemia Post-Operative Diagnosis duodenitis, watermellon stomach (GAVE) Procedure & Operative Findings Date of Procedure 08/23/22 Procedure Performed/Findings EGD C biopies Anesthesia Type per medical facilities section director Estimated Blood Loss Estimated blood loss (mL): scant Specimens/Packing Specimens Removed antrum, ge CHRISTINA BUTLER DO Aug 23, 2022 15:27
[2022-08-23] MEDS: SUCRALFATE 1 GM (CARAFATE) TAB PO SCH ×2 (16:31→20:47)
[2022-08-23] MEDS: ROSUVASTATIN 20 MG (CRESTOR) TABLET PO SCH (20:48)
[2022-08-23] MEDS ORDERED: IRON SUCROSE INJECTION 300 MG in NS (IVPB) 250 ML IV SCH (21:45)
--- NOTE | 2022-08-23 21:57 | OPERATIVE REPORT ---
DATE OF SERVICE: 08/23/2022 PREOPERATIVE DIAGNOSIS: Anemia. POSTOPERATIVE DIAGNOSES: Duodenitis, watermelon stomach (GAVE). PROCEDURES: EGD with biopsies. SURGEON: Christina Henry DO ANESTHESIA: Per CATHODE RAY TUBE SALVAGE PROCESSOR. ESTIMATED BLOOD LOSS: Scant. COMPLICATIONS: None. INDICATIONS: The patient is a 66-year-old female with anemia. She recently had colonoscopy, but having dark stools. She understands risks and benefits of EGD for further evaluation. She understands and wishes to proceed. Consent was signed in chart. DESCRIPTION OF PROCEDURE: The patient was taken to the endoscopy suite. A timeout was performed. Scope was inserted in the mouth, down the esophagus, stomach and into the duodenum without difficulty. Second portion had no polyps, masses or ulcerations. First portion had some slight erythematous changes consistent with [ ] possible duodenitis. Scope was slowly retracted back into the stomach where the watermelon stomach appearance present and friable tissue. Biopsy of this area was obtained. Scope was retroflexed noting no other pathology. Scope was returned to its normal position, slowly withdrawn until distal esophagus. Biopsy of the GE junction was obtained. Scope was then slowly retracted back until completely removed, noting no other pathology. The patient tolerated the procedure well without complications, taken to recovery room in stable condition. RECOMMENDATIONS: The patient will add Carafate 1 gram 4 times a day. We will continue to follow hemoglobin and transfuse as needed. If does not stabilize, may need further intervention. Job ID: [id number] DocumentID: [id number] Dictated Date: 08/23/2022 15:30:35 Fruit Press Operator Date: 08/23/2022 21:55:00 Dictated By: CHRISTINA HENRY DO
[2022-08-24 03:07] VITALS: BP 157/64
[2022-08-24 05:34] LABS: BASOPHILS % (AUTO) 1 % (0-10); EOSINOPHILS # (AUTO) 0.4 10^3/uL (0.0-0.3); EOSINOPHILS % (AUTO) 8 % (0-10); HEMATOCRIT 24 % (35-52); HEMOGLOBIN 7.6 g/dL (11.5-16.0); LYMPHOCYTES # (AUTO) 1.2 10^3/uL (1.0-4.0); LYMPHOCYTES % (AUTO) 24 % (12-44); MEAN CORPUSCULAR HEMOGLOBIN 27 pg (25-34); MEAN CORPUSCULAR HGB CONC 32 g/dL (32-36); MEAN CORPUSCULAR VOLUME 82 fL (80-99); MEAN PLATELET VOLUME 9.9 fL (9.0-12.2); MONOCYTES # (AUTO) 0.5 10^3/uL (0.0-1.0); MONOCYTES % (AUTO) 10 % (0-12); NEUTROPHILS % (AUTO) 58 % (42-75); PLATELET COUNT 157 10^3/uL (130-400); WHITE BLOOD COUNT 5.2 10^3/uL (4.3-11.0)
[2022-08-24 05:59] LABS: ALBUMIN 3.3 GM/DL (3.2-4.5); BILIRUBIN,TOTAL 1.2 MG/DL (0.1-1.0); CALCIUM 8.7 MG/DL (8.5-10.1); CREATININE SERUM 1.29 MG/DL (0.60-1.30); POTASSIUM 4.1 MMOL/L (3.6-5.0); TOTAL PROTEIN 5.8 GM/DL (6.4-8.2)
[2022-08-24] MEDS: SUCRALFATE 1 GM (CARAFATE) TAB PO SCH ×2 (06:29→11:41)
[2022-08-24] MEDS: inSUlin ASPART (NovoLOG) 1 UNIT/0.01 ML (CHARGE PER UNIT) SC SCH ×2 (06:29→11:40)
[2022-08-24] MEDS ORDERED: CYANOCOBALAMIN INJ 1000 MCG/ML IM ONE (08:00)
[2022-08-24] MEDS ORDERED: IRON SUCROSE INJECTION 300 MG in NS (IVPB) 250 ML IV SCH (08:00)
[2022-08-24 08:32] VITALS: BP 123/74
[2022-08-24] MEDS: GABAPENTIN 300 MG (NEURONTIN) CAP PO SCH (08:34)
[2022-08-24] MEDS: LOSARTAN 100 MG (COZAAR) TABLET PO SCH (08:34)
[2022-08-24] MEDS: PANTOPRAZOLE 40 MG (PROTONIX) VIAL IV SCH (08:35)
[2022-08-24] MEDS ORDERED: FERR-74 PO (08:59)
[2022-08-24] MEDS ORDERED: CYAN-41 PO (08:59)
[2022-08-24] MEDS ORDERED: IRON SUCROSE 200 MG/10 ML (VENOFER) VIAL IV SCH (09:00)
[2022-08-24] MEDS ORDERED: SUCR1TAB PO (10:16)
[2022-08-24] MEDS ORDERED: PANT40TA52 PO (10:16)
[2022-08-24] MEDS ORDERED: IRON100V2 IV (10:16)
--- NOTE | 2022-08-24 10:23 | Discharge Summary ---
Discharge Summary Hospital Course Problems/Diagnosis: (1) Acute blood loss anemia Status: Acute Assessment & Plan: Required 3 units PRBCs to get hemoglobin above 7. Initially thought to be related to aspirin/NSAID use and recent colon polyp removal, however EGD revealed GAVE as well. Started on pantoprazole, carafate and prescribed IV iron x 4 more doses outpatient. Discussed need to follow up with primary to consider work up for cirrhosis or systemic sclerosis which can be associated with GAVE, as well as the possible need for future transfusions or procedures. Hemoglobin stable at 7.6 without further transfusion on day of d/c. (2) Chest pain in adult Status: Resolved Resolution Date/Time: 08/23/22 @ 10:19 Assessment & Plan: Suspect secondary to severe anemia, troponin normal, EKG unremarkable, resolved after transfusion. (3) Hypertension Status: Chronic Assessment & Plan: Resumed home meds on d/c. Qualifiers: Qualified Codes: I10 - Essential (primary) hypertension (4) CKD (chronic kidney disease) Status: Chronic Qualifiers: Qualified Codes: N18.31 - Chronic kidney disease, stage 3a (5) Diabetes mellitus, type 2 Status: Chronic Qualifiers: (6) GAVE (gastric antral vascular ectasia) Hospital Course Date of Admission: Aug 22, 2022 at 11:10 Admission Diagnosis : Acute blood loss anemia HTN CKD Diabetes mellitus Family Physician/Provider: Laina Santiago Date of Discharge: 08/24/22 Discharge Diagnosis: See problem list Hospital Course: See problem list Labs and Pending Lab Test: Laboratory Tests 08/23/22 11:46: Glucometer 97 08/23/22 15:53: Glucometer 92 08/23/22 20:23: Glucometer 169H 08/24/22 05:22: White Blood Count 5.2, Red Blood Count 2.87L, Hemoglobin 7.6L, Hematocrit 24L, Mean Corpuscular Volume 82, Mean Corpuscular Hemoglobin 27, Mean Corpuscular Hemoglobin Concent 32, Red Cell Distribution Width 17.2H, Platelet Count 157, Mean Platelet Volume 9.9, Immature Granulocyte % (Auto) 0, Neutrophils (%) (Auto) 58, Lymphocytes (%) (Auto) 24, Monocytes (%) (Auto) 10, Eosinophils (%) (Auto) 8, Basophils (%) (Auto) 1, Neutrophils # (Auto) 3.0, Lymphocytes # (Auto) 1.2, Monocytes # (Auto) 0.5, Eosinophils # (Auto) 0.4H, Basophils # (Auto) 0.0, Immature Granulocyte # (Auto) 0.0, Sodium Level 137, Potassium Level 4.1, Chloride Level 107, Carbon Dioxide Level 23, Anion Gap 7, Blood Urea Nitrogen 17, Creatinine 1.29, Estimat Glomerular Filtration Rate 46, BUN/Creatinine Ratio 13, Glucose Level 164H, Calcium Level 8.7, Corrected Calcium 9.3, Total Bilirubin 1.2H, Aspartate Amino Transf (AST/SGOT) 41H, Alanine Aminotransferase (ALT/SGPT) 11, Alkaline Phosphatase 52, Total Protein 5.8L, Albumin 3.3 08/24/22 05:36: Glucometer 169H Home Meds Active Pantoprazole Sodium 40 Mg Tablet.dr 40 Mg PO DAILY Sucralfate 1 Gram Tablet 1 Gm PO ACHS Venofer (Iron Sucrose Complex) 200 Mg Iron/10 Ml Vial 200 Mg IV Q48H@09 Vitamin B-12 (Cyanocobalamin (Vitamin B-12)) 1,000 Mcg Tablet 1,000 Mcg PO DAILY@0700 Reported Probiotic (Bacillus Coagulans) 10 Billion Cell Capsule.dr 1 Each PO 1200 Calcium (Calcium Carbonate) 500 Mg Calcium (1250 Mg) Tablet 500 Mg PO 1200 Xigduo Xr 10 mg-1,000 mg Tab (Dapagliflozin/Metformin HCl) 10 Mg-1,000 Mg Tab.bp.24h 1 Tab PO 1200 Losartan Potassium 100 Mg Tablet 100 Mg PO 1200 Rybelsus (Semaglutide) 3 Mg Tablet 3 Mg PO DAILY Propranolol HCl 20 Mg Tablet 20 Mg PO TID Neurontin (Gabapentin) 300 Mg Capsule 300 Mg PO TID Insulin Aspart 100 Unit/Ml Vial 60 Unit SQ PC Hydrochlorothiazide 25 Mg Tablet 25 Mg PO 1200 Rosuvastatin Calcium 20 Mg Tablet 20 Mg PO 1200 Toujeo Max Solostar (Insulin Glargine,Hum.rec.anlog) 300 Unit/Ml (3 Ml) Insuln.pen 82 Units SQ HS Assessment/Pt DC Instructions Follow up with primary provider within a week of discharge. You will need to go to outpatient same day surgery every other day for iron infusions for 4 doses. Discharge Diet: ADA Diet Activity as Tolerated: Yes Discharge Physical Examination Allergies: Coded Allergies: No Known Drug Allergies (Unverified , 12/03/20) General Appearance: No Apparent Distress, WD/WN Respiratory: Lungs Clear, Normal Breath Sounds Cardiovascular: Regular Rate, Rhythm, No Murmur Gastrointestinal: Normal Bowel Sounds, Soft Extremity: No Pedal Edema Skin: Normal Color, Warm/Dry Neurologic/Psychiatric: Alert, Normal Mood/Affect SULAIMAN SRINIVASAN MD Aug 24, 2022 10:23
[2022-08-24 12:15] VITALS: BP 123/74
[2022-08-25] MEDS ORDERED: CYANOCOBALAMIN 1,000 MCG (VITAMIN B-12) TABLET PO SCH (07:00)
--- NOTE | 2022-08-25 17:26 | Progress Note - Surgery ---
Subjective Date Seen by a Provider: Aug 24, 2022 Time Seen by a Provider: 11:50 Subjective/Events-last exam Patient feeling well today. Hgb stable 7.6 and slowly increasing. No abdominal pain. Tolerating diet. Denies n/v fever sweats chills shortness of breath or chest pain. Objective Exam Capillary Refill : General Appearance: No Apparent Distress, WD/WN HEENT: PERRL/EOMI, Pharynx Normal, Pale Conjunctivae (L), Pale Conjunctivae (R) Neck: Full Range of Motion, Normal Inspection, Non Tender, Supple Respiratory: Chest Non Tender, No Accessory Muscle Use, No Respiratory Distress Cardiovascular: Regular Rate, Rhythm, No JVD Gastrointestinal: no organomegaly, tenderness (epigastric-minimal) Extremity: No Pedal Edema Neurologic/Psychiatric: Alert, Oriented x3, Normal Mood/Affect Skin: Normal Color, Warm/Dry Lymphatic: No Adenopathy Assessment/Plan Assessment/Plan Assessment/Plan anemia gi bleed feel likely upper but with recent polypectomies, could be lower GAVE melena dm S/p EGD appears to have GAVE (Watermelon stomach) Protonix/Carafate follow hgb Wanting to go home and being discharged, follow up outpatient. CHRISTINA BUTLER DO Aug 25, 2022 17:26
== END 2022-08-24 08:56 | disposition home or self-care (01) ==
LOC: EDUNIT# 07:05 → ER FS 07:07 → UNDOADMOB 11:10 → 4TH 11:10 → UNDODISOB 08-24 08:56
PROVIDERS: ADMIT Family Medicine; ATTEND Family Medicine
DX: K31.811 Angiodysplasia of stomach and duodenum with bleeding (principal); D62 Acute posthemorrhagic anemia; I13.0 Hypertensive heart and chronic kidney disease with heart failure and stage 1 through stage 4 chronic kidney disease, or unspecified chronic kidney disease; E11.22 Type 2 diabetes mellitus with diabetic chronic kidney disease; N18.9 Chronic kidney disease, unspecified; I50.9 Heart failure, unspecified; K29.80 Duodenitis without bleeding; N28.9 Disorder of kidney and ureter, unspecified; Z79.4 Long term (current) use of insulin; Z79.84 Long term (current) use of oral hypoglycemic drugs; Z87.891 Personal history of nicotine dependence; Z79.82 Long term (current) use of aspirin; Z79.899 Other long term (current) drug therapy
CPT/HCPCS: 36415; 36430 ×2; 43239; 71045; 80053 ×2; 82274; 82607; 82728; 82947 ×3; 83540; 83550; 83690; 83735; 83874; 83880; 84484; 85014; 85018; 85025 ×2; 85027 ×2; 85379; 85610; 85730; 86850; 86900; 86901; 86920; 88305; 93005; 93041; 96372; 96375; 96376 ×2; 99284; G0378; P9016

== ENCOUNTER 2022-08-31 13:52 | Outpatient (RCR) | payer BC ==
[2022-08-26] MEDS: IRON SUCROSE 200 MG/10 ML (VENOFER) VIAL IV SCH (08:41)
[2022-08-26 08:46] VITALS: BP 108/51
[2022-08-29] MEDS: IRON SUCROSE 200 MG/10 ML (VENOFER) VIAL IV SCH (07:15)
[2022-08-29 07:40] VITALS: BP 114/63
[~2022-08-31] VITALS: Ht 167.7 cm; Wt 84.0 kg
[2022-08-31 13:45] VITALS: BP 129/52
[~2022-08-31 13:52] MED LIST changes: +ASPI-479 PO; +BACI1CAP6 PO; +CALC-823 PO; +CYAN-41 PO; +DAPA1TAB5 PO; +FERR-74 PO; +GABA300C PO; +HYDR25TA4 PO; +IBUP-2473 PO; +INSU100V42 SQ; +INSU300I3 SQ; +IRON100V2 IV; +LOSA100T58 PO; +PANT40TA52 PO; +PROP20TA5 PO; +ROSU20TA32 PO; +SEMA3TAB4 PO; +SUCR1TAB PO
[2022-08-31] MEDS: IRON SUCROSE 200 MG/10 ML (VENOFER) VIAL IV SCH (14:09)
== END 2022-08-31 14:56 | disposition home or self-care (01) ==
LOC: SDC 13:52
PROVIDERS: ATTEND Family Medicine
DX: D62 Acute posthemorrhagic anemia (principal)
CPT/HCPCS: 96365